=== PATIENT | female | born 1985 | race Caucasian/White ===

== ENCOUNTER 2018-10-12 18:58 | Emergency (ER) | payer OTHER ==
[2018-10-12 19:23] VITALS: BP 127/79
[2018-10-12] MEDS ORDERED: Albuterol/Ipratropium NEB.SOL* Albuterol 2.5 MG/Ipratropium 0.5 MG 3 ML INH ONE (19:54)
--- NOTE | 2018-10-12 20:23 | UC ---
Respiratory Complaint HPI - HPI Summary HPI Summary: 33-year-old female with history of asthma presents with 4 day history of nasal congestion, sinus pressure, sore throat, and a harsh, bronchospastic, nonproductive cough. Symptoms are associated with some chest tightness and mild shortness of breath. States she was recently treated by her primary care provider for a sinus infection with a 7 day course of doxycycline which she completed on 10/06/2018. States her symptoms did improve although did not completely resolve and on 10/08/2018 began having symptoms again. She also notes that at the beginning of the month around 09/19/2018 she was treated with a short course of prednisone for persistent asthma and had her Flovent increased to 220 g 2 puffs twice daily for which she has been compliant. She also reports using her Xopenex 3-4 times a day without any relief. Denies fever , chills, ear pain, chest pain, abdominal pain, nausea, vomiting, or diarrhea. - History of Current Complaint Chief Complaint: UCRespiratory Stated Complaint: COUGH Time Seen by Provider: 10/12/18 19:28 Hx Obtained From: Patient Pain Intensity: 5 - Allergies/Home Medications Allergies/Adverse Reactions: Allergies Allergy/AdvReac Type Severity Reaction Status Date / Time alprazolam [From Xanax] Allergy Wheezing Verified 10/12/18 19:25 bupropion [From Wellbutrin] Allergy Anaphylatic Verified 10/12/18 19:25 Shock lamotrigine [From Lamictal] Allergy Hives Verified 10/12/18 19:25 Penicillins Allergy Altered Verified 10/12/18 19:25 Mental Status Sulfa (Sulfonamide Allergy Altered Verified 10/12/18 19:25 Antibiotics) Mental Status Home Medications: Home Medications Escitalopram Oxalate [Lexapro 10 mg] 10 mg PO DAILY 10/12/18 [History Confirmed 10/12/18] Fluticasone Furoate [Flonase Sensimist] 5.9 spray BOTH NARES DAILY 10/12/18 [ History Confirmed 10/12/18] Fluticasone HFA 220 mcg(NF) [Flovent Hfa 220 Mcg(NF)] 2 puff PO BID 10/12/18 [ History Confirmed 10/12/18] Levalbuterol HFA INHALER* [Xopenex Hfa Inhaler*] 1 puff PO Q4H PRN 10/12/18 [ History Confirmed 10/12/18] Propranolol HCl 10 mg PO Q6H PRN 10/12/18 [History Confirmed 10/12/18] Ranitidine TAB (NF) [Zantac TAB (NF)] 300 mg PO BEDTIME 10/12/18 [History Confirmed 10/12/18] PMH/Surg Hx/FS Hx/Imm Hx Respiratory History: Asthma GI/ History: Gastroesophageal Reflux Psychological History: Anxiety, Depression, Other - Panic attacks - Surgical History Surgical History: None - Social History Alcohol Use: Occasionally Substance Use Type: None Smoking Status (MU): Never Smoked Tobacco Review of Systems All Other Systems Reviewed And Are Negative: Yes Constitutional: Negative: Fever, Chills Eyes: Negative: Drainage, Eye Redness ENT: Positive: Sore Throat, Nasal Discharge, Sinus Congestion. Negative: Ear Ache, Sinus Pain/Tenderness Respiratory: Positive: Shortness Of Breath, Cough Cardiovascular: Negative: Palpitations, Chest Pain Gastrointestinal: Negative: Abdominal Pain, Vomiting, Diarrhea, Nausea Is Patient Immunocompromised?: No Physical Exam - Summary Physical Exam Summary: GENERAL APPEARANCE: Well developed, well nourished, alert and cooperative, and appears to be in no acute distress. EYES: Conjunctiva clear. No discharge. Vision is grossly intact. EARS: External auditory canals and tympanic membranes clear, hearing grossly intact. NOSE: Mild-moderate nasal congestion with mucosal erythema and mild edema. No nasal discharge. THROAT: Mild pharyngeal erythema with cobblestoning. No tonsilar inflammation, swelling, exudate, or lesions. Oral cavity normal. Teeth and gingiva in good general condition. NECK: Neck supple, non-tender without lymphadenopathy. CARDIAC: Normal S1 and S2. No S3, S4 or murmurs. Rhythm is regular. There is no peripheral edema, cyanosis or pallor. Extremities are warm and well perfused. Capillary refill is less than 2 seconds. LUNGS: Clear to auscultation and percussion without rales, rhonchi, wheezing or diminished breath sounds. ABDOMEN: Positive bowel sounds. Soft, nondistended, nontender. No guarding or rebound. No masses or hepatosplenomegally. MUSKULOSKELETAL: ROM intact to all extremities. No joint erythema or tenderness. Normal muscular development. Normal gait. SKIN: Skin normal color, texture and turgor with no lesions or eruptions. Triage Information Reviewed: Yes Vital Signs: Initial Vital Signs Temp 98.6 F 10/12/18 19:17 Pulse 82 10/12/18 19:17 Resp 20 10/12/18 19:17 BP 127/79 10/12/18 19:17 Pulse Ox 95 10/12/18 19:17 Vital Signs Reviewed: Yes UC Diagnostic Evaluation - Laboratory O2 Sat by Pulse Oximetry: 95 - Radiology Radiology Interpretation Completed By: ED Physician - No acute cardiopulmonary pathology Respiratory Course/Dx - Course Course Of Treatment: 33-year-old female with history of asthma presents with 4 day history of nasal congestion, sinus pressure, sore throat, and a harsh, bronchospastic, nonproductive cough. Symptoms are associated with some chest tightness and mild shortness of breath. States she was recently treated by her primary care provider for a sinus infection with a 7 day course of doxycycline which she completed on 10/06/2018. States her symptoms did improve although did not completely resolve and on 10/08/2018 began having symptoms again. She also notes that at the beginning of the month around 09/19/2018 she was treated with a short course of prednisone for persistent asthma and had her Flovent increased to 220 g 2 puffs twice daily for which she has been compliant. She also reports using her Xopenex 3-4 times a day without any relief. Denies fever , chills, ear pain, chest pain, abdominal pain, nausea, vomiting, or diarrhea. Afebrile. Vital signs stable. Exam revealed some mild to moderate nasal congestion with mucosal erythema and edema, mild pharyngeal erythema with some cobblestoning, no tonsillar swelling or exudate, clear bilateral breath sounds, harsh, nonproductive cough. Chest x-ray showed no acute cardiopulmonary pathology. Patient was given a DuoNeb and she reported some mild improvement in symptoms. With the patient being afebrile, having clear breath sounds, and just recently having completed a course of antibiotics I did not feel that additional antibiotics or a course of prednisone would be beneficial at this time. I am recommending symptomatic treatment for rhinosinusitis and providing her with Tessalon Perles one capsule every 8 hours as needed for cough. She is to follow-up with her primary care provider in 5-7 days to have symptoms rechecked. Warning symptoms were reviewed with the patient. She verbalizes understanding and agrees with plan of care. - Differential Dx/Diagnosis Differential Diagnosis/HQI/PQRI: Asthma, Bronchitis, Influenza, Lower Resp Infection, Sinusitis Provider Diagnosis: Acute infection of nasal sinus, Cough Discharge - Sign-Out/Discharge Documenting (check all that apply): Patient Departure All imaging exams completed and their final reports reviewed: No - Discharge Plan Condition: Stable Disposition: HOME Prescriptions: Benzonatate CAP* [Tessalon 100 MG CAP*] 100 mg PO TID PRN #15 cap PRN Reason: Cough Patient Education Materials: Rhinosinusitis (ED) Referrals: No Primary Care Phys,NOPCP [Primary Care Provider] - Additional Instructions: Your chest x-ray performed in the clinic [facility] did not show any evidence of pneumonia. The x-ray will be reviewed by the radiologist tomorrow and we will contact you if they see anything that would change your treatment plan. With you not running fever, having just completed antibiotics, and having clear lung sounds I do not think another course of antibiotics or prednisone are warranted at this time. I would recommend treating the continued nasal and sinus congestion as this could be contributing to your cough. Use a saline rinse kit such as Neti Pot or NeilMed at least twice a day. Continue using the Flonase nasal spray as directed. Try using an over the counter decongestant such as Sudafed according to directions for the congestion. Continue with your Flovent and Xopenex as prescribed. You may try using Tessalon Perles 1 cap every 8 hours as needed for the cough. Follow up with your primary care provider in 5-7 days for recheck of symptoms. Seek immediate medical attention in the emergency room if you develop fever greater than 100.5 F, have persistent wheezing despite using rescue inhaler, have increased shortness of breath, chest pain, or any worsening of symptoms. - Billing Disposition and Condition Condition: STABLE Disposition: Home
--- NOTE | 2018-10-13 08:41 | UC ---
- Progress Note Progress Note: Chest x-ray from October 13, 2018 was read as no acute disease process by the radiologist which is the same reading as the provider of that date therefore there is no discrepancy. Course/Dx - Diagnoses Provider Diagnoses: Acute infection of nasal sinus, Cough Discharge - Sign-Out/Discharge Documenting (check all that apply): Patient Departure All imaging exams completed and their final reports reviewed: Yes - Discharge Plan Condition: Stable Disposition: HOME Prescriptions: Benzonatate CAP* [Tessalon 100 MG CAP*] 100 mg PO TID PRN #15 cap PRN Reason: Cough Patient Education Materials: Rhinosinusitis (ED) Referrals: No Primary Care Phys,NOPCP [Primary Care Provider] - Additional Instructions: Your chest x-ray performed in the clinic tonight did not show any evidence of pneumonia. The x-ray will be reviewed by the radiologist tomorrow and we will contact you if they see anything that would change your treatment plan. With you not running fever, having just completed antibiotics, and having clear lung sounds I do not think another course of antibiotics or prednisone are warranted at this time. I would recommend treating the continued nasal and sinus congestion as this could be contributing to your cough. Use a saline rinse kit such as Neti Pot or NeilMed at least twice a day. Continue using the Flonase nasal spray as directed. Try using an over the counter decongestant such as Sudafed according to directions for the congestion. Continue with your Flovent and Xopenex as prescribed. You may try using Tessalon Perles 1 cap every 8 hours as needed for the cough. Follow up with your primary care provider in 5-7 days for recheck of symptoms. Seek immediate medical attention in the emergency room if you develop fever greater than 100.5 F, have persistent wheezing despite using rescue inhaler, have increased shortness of breath, chest pain, or any worsening of symptoms. - Billing Disposition and Condition Condition: STABLE Disposition: Home
== END 2018-10-12 20:45 | disposition home or self-care (01) ==
LOC: UCEAST 18:58
DX: J01.90 Acute sinusitis, unspecified (principal); R05 Cough; J45.909 Unspecified asthma, uncomplicated; K21.9 Gastro-esophageal reflux disease without esophagitis; Z88.8 Allergy status to other drugs, medicaments and biological substances; Z88.0 Allergy status to penicillin; Z88.2 Allergy status to sulfonamides; Z79.899 Other long term (current) drug therapy
CPT/HCPCS: 71046; 99202; A9270-GY; G0463